=== PATIENT | male | born 1975 | race Caucasian/White ===

== ENCOUNTER 2017-02-20 10:05 | Inpatient (IN) | payer BC ==
[~2017-02-20] VITALS: Ht 182.9 cm; Wt 116.6 kg
[~2017-02-20 10:05] MED LIST: NO HOME MEDS
[2017-02-20 10:40] LABS: EOSINOPHIL (%) 1.4 % (0-5); EOSINOPHIL COUNT 0.1 K/uL (0-0.3); HEMATOCRIT 43.6 % (38.0-50.0); IMMATURE GRANULOCYTE (%) 0.2 % (0.0-0.7); LYMPHOCYTE COUNT 1.3 K/uL (1.0-2.8); MCH 29.7 PG (29.0-34.0); MCHC 33.3 G/DL (30.0-36.0); MCV 89.3 FL (86-99); MEAN PLAT.VOLUME 8.4 uM^3 (9.0-12.4); MONOCYTE (%) 6.1 % (3-12); MONOCYTE COUNT 0.4 K/uL (0-0.8); NEUTROPHIL (%) 69.1 % (45-76); PLATELET COUNT 318 K/uL (156-360); RBC DIS.WIDTH-CV 12.7 % (11.8-14.6); RED BLOOD COUNT 4.88 M/uL (4.00-5.50); WHITE BLOOD COUNT 5.7 K/uL (4.1-10.2)
[2017-02-20 10:49] LABS: CHLORIDE 107 mEq/L (99-109); POTASSIUM 4.7 mEq/L (3.7-5.4); SODIUM 140 mEq/L (136-147)
[2017-02-20 10:51] LABS: GLUCOSE 105 mg/dL (70-99)
[2017-02-20 10:53] LABS: ANION GAP 7 MEQ/L (2-14)
[2017-02-20 10:55] LABS: GFR ESTIMATE (CALCULATED) > 59 mL/min/
[2017-02-20 10:56] LABS: UREA NITROGEN (BUN) 8 mg/dL (9-23)
[2017-02-20 11:01] LABS: TROP-I INTERPRETATION INDETERMINATE; TROPONIN-I 0.38 ng/mL (0.0-0.30)
[2017-02-20 11:20] LABS: PROTHROMBIN TIME 11.5 SEC (10.2-12.9)
[2017-02-20 11:23] LABS: PTT 35.8 SEC (25-37)
[2017-02-20] MEDS ORDERED: FISH OIL 1,2001 EAC4 PO (11:39)
[2017-02-20 13:46] VITALS: BP 131/77
[2017-02-20 16:58] VITALS: BP 122/71
[2017-02-20 19:44] LABS: TROP-I INTERPRETATION INDETERMINATE; TROPONIN-I 0.43 ng/mL (0.0-0.30)
[2017-02-20 20:05] VITALS: BP 146/74
[2017-02-20 23:30] VITALS: BP 129/69
[2017-02-21 03:13] LABS: HEMATOCRIT 40.4 % (38.0-50.0); MCH 29.8 PG (29.0-34.0); MCHC 33.7 G/DL (30.0-36.0); MCV 88.4 FL (86-99); MEAN PLAT.VOLUME 8.2 uM^3 (9.0-12.4); PLATELET COUNT 283 K/uL (156-360); RBC DIS.WIDTH-CV 12.9 % (11.8-14.6); RED BLOOD COUNT 4.57 M/uL (4.00-5.50); WHITE BLOOD COUNT 6.6 K/uL (4.1-10.2)
[2017-02-21 03:30] VITALS: BP 123/75
[2017-02-21 03:34] LABS: TROP-I INTERPRETATION NEGATIVE; TROPONIN-I 0.28 ng/mL (0.0-0.30)
[2017-02-21 04:30] LABS: HDL CHOLESTEROL 39 MG/DL (Desirable>=40); LDL CHOLESTEROL 139 mg/dL (Desirable<100); NON-HDL CHOLESTEROL 172 mg/dL (Desirable<160); TOTAL CHOLESTEROL 211 mg/dL (Desirable<200); TRIGLYCERIDES 163 MG/DL (Normal: <150)
[2017-02-21 07:33] VITALS: BP 118/72
[2017-02-21 12:04] VITALS: BP 127/76
[2017-02-21] MEDS ORDERED: LO-DOSE ASPIRIN81 M2 PO (13:56)
== END 2017-02-21 14:10 | disposition home or self-care (01) | DRG 310 ==
LOC: EME → EDBD 10:05 → 4EAST 12:02 → EDOF 12:02 → ENRESERV 12:11 → EDOF 12:11 → ENRESERV 12:48 → 4EAST 13:28
PROVIDERS: Emergency Medicine; Family Medicine
DX: I48.0 Paroxysmal atrial fibrillation (principal); E78.5 Hyperlipidemia, unspecified; R74.8 Abnormal levels of other serum enzymes; I11.9 Hypertensive heart disease without heart failure; R00.1 Bradycardia, unspecified
CPT/HCPCS: 71010; 80048; 80061; 84443; 84484; 85025; 85027; 85379; 85610; 85730; 93005; 93306; 99281; 99285

== ENCOUNTER 2017-03-23 09:42 | Day surgery (SDC) | payer BC ==
[~2017-03-23] VITALS: Ht 182.9 cm; Wt 109.7 kg
[~2017-03-23 09:42] MED LIST changes: +FISH OIL 1,2001 EAC4 PO; +LO-DOSE ASPIRIN81 M2 PO; +PRINIVIL5 MG PO; +ZETIA10 MG PO
[2017-03-23 17:30] VITALS: BP 116/55
[2017-03-23 19:16] VITALS: BP 137/67
[2017-03-23 23:45] VITALS: BP 118/56
[2017-03-24 03:51] VITALS: BP 129/65
[2017-03-24 05:15] LABS: EOSINOPHIL (%) 2.8 % (0-5); EOSINOPHIL COUNT 0.2 K/uL (0-0.3); HEMATOCRIT 40.9 % (38.0-50.0); IMMATURE GRANULOCYTE (%) 0.1 % (0.0-0.7); INSTRUMENT ABS NEUTROPHIL CT 4.4 K/uL; LYMPHOCYTE COUNT 1.7 K/uL (1.0-2.8); MCH 29.2 PG (29.0-34.0); MCHC 33.3 G/DL (30.0-36.0); MCV 87.8 FL (86-99); MEAN PLAT.VOLUME 8.5 uM^3 (9.0-12.4); MONOCYTE (%) 8.2 % (3-12); MONOCYTE COUNT 0.6 K/uL (0-0.8); NEUTROPHIL COUNT 4.4 K/uL (1.8-6.4); PLATELET COUNT 294 K/uL (156-360); RBC DIS.WIDTH-CV 12.5 % (11.8-14.6); RBC DIS.WIDTH-SD 40.4 % (39-53); RED BLOOD COUNT 4.66 M/uL (4.00-5.50); WHITE BLOOD COUNT 6.8 K/uL (4.1-10.2)
[2017-03-24 05:50] LABS: ANION GAP 9 MEQ/L (2-14); CHLORIDE 108 MEQ/L (99-109); GFR ESTIMATE (CALCULATED) > 59 mL/min/ (58.99-99999); GLUCOSE 82 mg/dL (70-99); POTASSIUM 4.3 MEQ/L (3.7-5.4); SAMPLE HEMOLYSIS CHECK 0; SAMPLE ICTERIC CHECK 0; SAMPLE LIPEMIA CHECK 0; SODIUM 141 MEQ/L (136-147); UREA NITROGEN (BUN) 7 mg/dL (9-23)
[2017-03-24 08:30] VITALS: BP 120/66
[2017-03-24] MEDS ORDERED: CLOPIDOGREL75 MG PO (10:07)
== END 2017-03-24 11:49 | disposition home or self-care (01) ==
LOC: CATH 09:42 → CANRESERV 13:17 → ENRESERV 13:17 → 4EAST 16:31 → 2SOUTH 16:31 → 4EAST 17:20
PROVIDERS: Internal Medicine Cardiovascular Disease
DX: I25.10 Atherosclerotic heart disease of native coronary artery without angina pectoris (principal); I25.5 Ischemic cardiomyopathy; I48.91 Unspecified atrial fibrillation; I10 Essential (primary) hypertension; E78.5 Hyperlipidemia, unspecified; E66.3 Overweight; Z68.33 Body mass index [BMI] 33.0-33.9, adult; Z79.82 Long term (current) use of aspirin
CPT/HCPCS: 80048; 85025; 85347; 93005; C1725; C1769; C1874; C1887; G0378; J0153; J0583; J1644; J2250; J3010; J7050